=== PATIENT | female | born 1980 | race Caucasian/White ===

== ENCOUNTER 2016-12-03 18:21 | Emergency (ER) | payer OTHER ==
[~2016-12-03] VITALS: Ht 157.5 cm; Wt 67.0 kg
[~2016-12-03 18:21] MED LIST: PHEN12.5 PO; PHEN12.5 PR; VIST25CA PO
[2016-12-03 18:40] VITALS: BP 126/82; PULSE 83; RESP 18; TEMP 98.9; O2SAT 100
[2016-12-03] MEDS ORDERED: SODIUM CHLOR 0.9% 1000 ML INJ 1,000 ML IV SCH (18:47)
--- NOTE | 2016-12-03 18:54 | PD ---
HPI Chief Complaint: Flank/Kidney Pain Time Seen by Provider: 18:43 Travel History International Travel<30 days: No Contact w/Intl Traveler<30days: No Traveled to known affect area: No History of Present Illness HPI 36-year-old female here for evaluation of right flank pain. The patient has history of kidney stones, and states that the pain feels very similar to when she last passed a kidney stone. She notices symptoms a couple days ago, however symptoms significantly worsened today while at work. Patient experienced severe right flank pain that radiated to her right lower abdomen. This was associated with nausea. When the patient arrived to the emergency department, she is the restroom, and believes she may have passed the stone. She has some mild residual pain in her flank area on my assessment. She denies history of abdominal surgeries. Patient is currently on her menstrual period, and thought that initially the pain was from her menstrual cramping. She denies vaginal discharge other than slight bleeding. PFSH Past Medical History Arthritis: Yes (Hands) Blood Disorders: No Anxiety: Yes Cardiovascular Problems: Yes Diabetes: No Diminished Hearing: No Endocrine: No Genitourinary: No Immune Disorder: No Implanted Vascular Access Dvce: No Kidney Stones: Yes Musculoskeletal: Yes Neurologic: No Reproductive: No Respiratory: Yes Seizures: Yes ("Convulsions") Thyroid Disease: No Tetanus Vaccination: > 5 Years Influenza Vaccination: No ?: Not LMP: "Now" : 1 Miscarriage: 1 Past Surgical History Surgical History: No Previous Surgery Other Surgery: No Social History Alcohol Use: Yes (4 glasses wine/daily) Tobacco Use: No Substance Use: No Allergies-Medications (Allergen,Severity, Reaction): Coded Allergies: Ibuprofen (Verified Adverse Reaction, Severe, "Low blood pressure" , ) Reported Meds & Prescriptions Reported Meds & Active Scripts Active No Active Prescriptions or Reported Medications Review of Systems Except as stated in HPI: all other systems reviewed are Neg Physical Exam Narrative GENERAL: Well-developed, well-nourished, no apparent distress. Slightly diaphoretic. SKIN: Focused skin assessment warm/slightly diaphoretic. No rash. HEAD: Atraumatic. Normocephalic. EYES: Pupils equal and round. No scleral icterus. No injection or drainage. ENT: Mucous membranes pink and moist. NECK: Trachea midline. No JVD. CARDIOVASCULAR: Regular rate and rhythm. RESPIRATORY: No accessory muscle use. Clear to auscultation. Breath sounds equal bilaterally. GASTROINTESTINAL: Abdomen soft, non-tender, nondistended. MUSCULOSKELETAL: No obvious deformities. No clubbing. No cyanosis. No edema. Moderate CVA tenderness. No left CVA tenderness. NEUROLOGICAL: Awake and alert. No obvious cranial nerve deficits. Motor grossly within normal limits. Normal speech. PSYCHIATRIC: Appropriate mood and affect; insight and judgment normal. Data Data Last Documented VS Vital Signs Date Time Temp Pulse Resp B/P Pulse Ox O2 Delivery O2 Flow Rate FiO2 12/03/16 19:00 98 12/03/16 18:40 98.9 83 18 126/82 Orders Beta Hcg (Quant/Titer) (12/03/16 18:47) Complete Blood Count With Diff (12/03/16 18:47) Comprehensive Metabolic Panel (12/03/16 18:47) Lipase (12/03/16 18:47) Prothrombin Time / Inr (Pt) (12/03/16 18:47) Act Partial Throm Time (Ptt) (12/03/16 18:47) Urinalysis - C+S If Indicated (12/03/16 18:47) Ct Abd/Pel W Iv Contrast(Rout) (12/03/16 18:47) Iv Access Insert/Monitor (12/03/16 18:47) Ecg Monitoring (12/03/16 18:47) Oximetry (12/03/16 18:47) Ondansetron Inj (Zofran Inj) (12/03/16 19:00) Sodium Chlor 0.9% 1000 Ml Inj (Ns 1000 M (12/03/16 18:47) Sodium Chloride 0.9% Flush (Ns Flush) (12/03/16 19:00) Morphine Inj (Morphine Inj) (12/03/16 19:00) Iohexol 350 Inj (Omnipaque 350 Inj) (12/03/16 20:39) Labs Laboratory Tests Test 12/03/16 12/03/16 19:00 19:05 Urine Color YELLOW Urine Turbidity CLEAR Urine pH 8.5 Urine Specific [place] 1.011 Urine Protein NEG mg/dL Urine Glucose (UA) NEG mg/dL Urine Ketones TRACE mg/dL Urine Occult Blood LARGE Urine Nitrite NEG Urine Bilirubin NEG Urine Leukocyte Esterase NEG Urine RBC 0-3 /hpf Urine WBC 0-2 /hpf Urine Squamous Epithelial 0-5 /hpf Cells Urine Mucus FEW /lpf Microscopic Urinalysis Comment CULT NOT INDICATED White Blood Count 6.5 TH/MM3 Red Blood Count 4.06 MIL/MM3 Hemoglobin 13.7 GM/DL Hematocrit 40.6 % Mean Corpuscular Volume 100.1 FL Mean Corpuscular Hemoglobin 33.8 PG Mean Corpuscular Hemoglobin 33.7 % Concent Red Cell Distribution Width 11.8 % Platelet Count 273 TH/MM3 Mean Platelet Volume 7.6 FL Neutrophils (%) (Auto) 63.3 % Lymphocytes (%) (Auto) 27.3 % Monocytes (%) (Auto) 7.9 % Eosinophils (%) (Auto) 0.9 % Basophils (%) (Auto) 0.6 % Neutrophils # (Auto) 4.1 TH/MM3 Lymphocytes # (Auto) 1.8 TH/MM3 Monocytes # (Auto) 0.5 TH/MM3 Eosinophils # (Auto) 0.1 TH/MM3 Basophils # (Auto) 0.0 TH/MM3 CBC Comment DIFF FINAL Differential Comment Prothrombin Time 10.3 SEC Prothromb Time International 0.9 RATIO Ratio Activated Partial 26.7 SEC Thromboplast Time Sodium Level 138 MEQ/L Potassium Level 3.4 MEQ/L Chloride Level 106 MEQ/L Carbon Dioxide Level 20.1 MEQ/L Anion Gap 12 MEQ/L Blood Urea Nitrogen 9 MG/DL Creatinine 0.78 MG/DL Estimat Glomerular Filtration 85 ML/MIN Rate Random Glucose 93 MG/DL Calcium Level 9.1 MG/DL Total Bilirubin 0.3 MG/DL Aspartate Amino Transf 83 U/L (AST/SGOT) Alanine Aminotransferase 34 U/L (ALT/SGPT) Alkaline Phosphatase 111 U/L Total Protein 7.8 GM/DL Albumin 4.0 GM/DL Lipase 117 U/L Human Chorionic Gonadotropin, LESS THAN 1 Quant MIU/ML [facility] Medical Decision Making Medical Screen Exam Complete: Yes Emergency Medical Condition: Yes Medical Record Reviewed: Yes Differential Diagnosis Nephrolithiasis, ureterolithiasis, UTI, pyelonephritis, hepatobiliary disease, appendicitis, colitis Narrative Course Vital signs show heart rate 83, blood pressure 126/82, pulse ox 100% on room air , oral temp of 98.9F. CBC is unremarkable. CMP is essentially unremarkable. Lipase is 117. Beta hCG is negative. UA: Trace ketones, large occult blood, negative nitrites, negative leukocyte esterase, not suggestive of UTI. CT abdomen pelvis: CONCLUSION: 1. Significant artifact in the abdomen from motion. 2. No acute inflammatory process. Appendix not seen. Patient was made aware of all findings. On reassessment she is resting comfortably and is requesting water to drink. She believes she may have passed a kidney stone while here in the emergency department. She does have some blood in her urine. There are no signs of UTI. Repeat abdominal exam shows no tenderness. She is feeling much better and would like to be discharged home. She is stable for discharge home with outpatient follow-up with her primary care physician this week. She was informed on when to return to the emergency department. She verbalizes understanding and agreement with plan. Diagnosis Primary Impression: Right flank pain Additional Impressions: Hematuria Qualified Code: R31.9 - Hematuria, unspecified type Nausea Referrals: Primary Care Physician 3 days Additional Instructions: Follow-up with your primary care physician this week. Return to the emergency department for worsening symptoms or any other concerns. Scripts Hydrocodone-Acetaminophen (Lortab)5-325 Mg Tab1 Tab PO Q6H PRN (PAIN) #10 TAB Ref 0 Prov:Jonah Coy MD 12/03/16 Ondansetron Odt (Zofran Odt)4 Mg Tab4 Mg SL Q8HR PRN (Nausea/Vomiting) #15 TAB Ref 0 Prov:Jonah Coy MD 12/03/16 Disposition: 01 DISCHARGE HOME Condition: Stable Jonah Coy MD Dec 03, 2016 18:54
[2016-12-03 19:00] VITALS: O2SAT 98
[2016-12-03] MEDS ORDERED: MORPHINE SULFATE 4 MG/ML INJ IV PUSH ONE (19:00)
[2016-12-03] MEDS ORDERED: ONDANSETRON HCL 4 MG/2 ML VIAL IVP ONE (19:00)
[2016-12-03] MEDS ORDERED: SODIUM CHLORIDE 0.9% FLUSH 10 ML FLUSH IV FLUSH PRN (19:00)
[2016-12-03 19:13] LABS: AUTOMATED NEUTROPHIL # 4.1 TH/MM3 (1.8-7.7); BASOPHIL % 0.6 % (0.0-2.0); EOSINOPHIL # 0.1 TH/MM3 (0-0.4); EOSINOPHIL % 0.9 % (0.0-4.0); HEMATOCRIT 40.6 % (35.0-46.0); HEMO FLAGS DIFF FINAL; LYMPH % 27.3 % (9.0-44.0); LYMPHOCYTE # 1.8 TH/MM3 (1.0-4.8); MEAN CELL VOLUME 100.1 FL (80.0-100.0); MEAN CORPUSCULAR HEMOGLOBIN 33.8 PG (27.0-34.0); MEAN CORPUSCULAR HGB CONC 33.7 % (32.0-36.0); MONO % 7.9 % (0.0-8.0); NEUT % 63.3 % (16.0-70.0); PLATELET COUNT 273 TH/MM3 (150-450); RED BLOOD COUNT 4.06 MIL/MM3 (4.00-5.30); RED CELL DISTRIBUTION WIDTH 11.8 % (11.6-17.2); WHITE BLOOD COUNT 6.5 TH/MM3 (4.0-11.0)
[2016-12-03 19:21] LABS: CHLORIDE 106 MEQ/L (98-107); POTASSIUM 3.4 MEQ/L (3.5-5.1); SODIUM (NA) 138 MEQ/L (136-145)
[2016-12-03 19:23] LABS: BLOOD, URINE LARGE (NEG); GLUCOSE,URINE NEG (NEG); KETONE, URINE TRACE mg/dL (NEG); NITRITE,URINE NEG (NEG); PH, URINE 8.5 (5.0-8.5)
[2016-12-03 19:24] LABS: ANION GAP 12 MEQ/L (5-15); BICARBONATE 20.1 MEQ/L (21.0-32.0); BLOOD UREA NITROGEN 9 MG/DL (7-18)
[2016-12-03 19:27] LABS: URINE COLOR YELLOW (YELLW/STRAW)
[2016-12-03 19:27] LABS: ALT (GPT) 34 U/L (10-53); APTT (PATIENT) 26.7 SEC (24.3-30.1); AST (GOT) 83 U/L (15-37); GLOMERULAR FILTRATION RATE 85 ML/MIN (>89); INTERNATIONAL NORMALIZED RATIO 0.9 RATIO; PROTHROMBIN TIME - PATIENT 10.3 SEC (9.8-11.6)
[2016-12-03 19:29] LABS: COMMENT (UR) CULT NOT INDICATED; CULTURE IF INDICATED CULT NOT INDICATED; MUCUS URINE FEW /lpf (OCC); RBC, URINE 0-3 /hpf (0-3); SQUAMOUS EPITHELIAL CELL URINE 0-5 /hpf (0-5); WBC, URINE 0-2 /hpf (0-5)
[2016-12-03 19:29] LABS: TOTAL BILIRUBIN ADULT 0.3 MG/DL (0.2-1.0)
[2016-12-03 19:30] LABS: ALKALINE PHOSPHATASE 111 U/L (45-117)
[2016-12-03 19:32] LABS: BETA HCG QUANT LESS THAN 1 MIU/ML (0-5)
[2016-12-03] MEDS ORDERED: IOHEXOL 350 MG/ML 10 ML VIAL (for RAD DIAG) IV ONE (20:39)
--- NOTE | 2016-12-03 20:52 | RADRPT ---
EXAM DATE/TIME: 12/03/2016 20:13 [place] COMPARISON: No previous studies available for comparison. INDICATIONS : Right flank and lower quadrant pain. IV CONTRAST: 100 cc Omnipaque 350 (iohexol) IV ORAL CONTRAST: No oral contrast ingested. RADIATION DOSE: 9.24 CTDIvol (mGy) MEDICAL HISTORY : Cardiovascular disease. Seizures. respiratory disease. SURGICAL HISTORY : None. ENCOUNTER: Initial ACUITY: 3 days PAIN SCALE: 10/10 LOCATION: Right lower quadrant Flank. TECHNIQUE: Volumetric scanning of the abdomen and pelvis was performed. Using automated exposure control and ad justment of the mA and/or kV according to patient size, radiation dose was kept as low as reasonably achievable to obtain optimal diagnostic quality images. DICOM format image data is available electro nically for review and comparison. FINDINGS: Significant motion artifact. LOWER LUNGS: The visualized lower lungs are clear. LIVER: Homogeneous density without lesion. There is no dilation of the biliary tree. No calcified gallston es. SPLEEN: Normal size without lesion. PANCREAS: Within normal limits. KIDNEYS: Normal in size and shape. There is no mass, stone or hydronephrosis. ADRENAL GLANDS: Within normal limits. VASCULAR: There is no aortic aneurysm. BOWEL/MESENTERY: The stomach, small bowel, and colon demonstrate no acute abnormality. There is no free intraperitone al air or fluid. ABDOMINAL WALL: Within normal limits. RETROPERITONEUM: There is no lymphadenopathy. BLADDER: No wall thickening or mass. REPRODUCTIVE: Within normal limits. INGUINAL: There is no lymphadenopathy or hernia. MUSCULOSKELETAL: Within normal limits for patient age. CONCLUSION: 1. Significant artifact in the abdomen from motion. 2. No acute inflammatory process. Appendix not seen. Santos Muñoz MD on December 03, 2016 at 20:48 Board Certified Radiologist. This report was verified electronically.
[2016-12-03 20:56] VITALS: BP 114/65; PULSE 80; RESP 18; O2SAT 99
[2016-12-03] MEDS ORDERED: ZOFR4TAB3 SL (20:59)
[2016-12-03] MEDS ORDERED: HYDR-3533 PO (20:59)
== END 2016-12-03 21:30 | disposition home or self-care (01) ==
LOC: PHED 18:21
DX: R10.31 Right lower quadrant pain (principal); R31.9 Hematuria, unspecified; R11.0 Nausea; Z87.442 Personal history of urinary calculi
CPT/HCPCS: 74177; 80053; 81001; 83690; 84702; 85025; 85610; 85730; 96361; 96374; 96375; 99285; J2270; J2405; J7030; Q9967